=== PATIENT | male | born 1955 | race Caucasian/White ===

== ENCOUNTER → 2016-04-06 | Outpatient (REF) | payer OTHER ==
[~2016-04-06] MED LIST: ACET500C PO; ASPI81TA85 PO; ATEN25TA PO; COUM2.5T11 PO; DRIS50002 PO; LISI10TA4 PO; METF500T PO; NAPR500T PO; PERC5TAB6 PO; TYLE325T5 PO; VOLT1GEL24 TD; ZOCO20TA PO
[2016-04-06 11:47] LABS: BASO % 0.6 % (0.0-1.0); EOS # 0.2 K/mm3 (0.0-0.50); EOS % 3.3 % (0.0-3.0); LARGE UNSTAINED CELL # 0.1 K/mm3 (0.0-0.4); LARGE UNSTAINED CELL % 1.5 % (0.0-4.0); LYMPH # 1.5 K/mm3 (1.5-4.5); LYMPH % 31.3 % (24.0-44.0); MEAN CORPUSCULAR HEMOGLOBIN 32.3 pg (27.0-33.0); MEAN CORPUSCULAR HGB CONC 33.2 g/dl (32.0-36.5); MEAN CORPUSCULAR VOLUME 97.2 fl (80.0-96.0); MONO # 0.4 K/mm3 (0.0-0.8); MONO % 7.5 % (0.0-5.0); NEUTROPHILS # 2.6 K/mm3 (1.8-7.7); NEUTROPHILS % 55.7 % (36.0-66.0); PLATELET COUNT, AUTOMATED 202 k/mm3 (150-450); RED CELL DISTRIBUTION WIDTH 12.6 % (11.5-14.5); WHITE BLOOD COUNT 4.7 K/mm3 (4.0-10.0)
[2016-04-06 12:15] LABS: ALKALINE PHOSPHATASE 116 U/L (45-117); ALT/SGPT 25 U/L (12-78); ANION GAP 7 MEQ/L (8-16); AST/SGOT 17 U/L (15-37); BILIRUBIN,TOTAL 0.7 MG/DL (0.2-1.0); BLOOD UREA NITROGEN 16 MG/DL (7-18); CALCIUM LEVEL 9.2 MG/DL (8.8-10.2); CARBON DIOXIDE LEVEL 31 MEQ/L (21-32); CHLORIDE LEVEL 105 MEQ/L (98-107); CHOLESTEROL LEVEL 155 MG/DL (<200); GLOMERULAR FILTRATION RATE > 60.0 (>49); GLUCOSE, FASTING 89 MG/DL (80-110); POTASSIUM SERUM 4.5 MEQ/L (3.5-5.1); SODIUM LEVEL 143 MEQ/L (136-145); TOTAL PROTEIN 6.5 GM/DL (6.4-8.2); TRIGLYCERIDES LEVEL 94 MG/DL (<150)
== END ==
LOC: M SFHCPLAZ 08:25
PROVIDERS: ATTEND Family Medicine
DX: R73.01 Impaired fasting glucose (principal); E78.5 Hyperlipidemia, unspecified

== ENCOUNTER 2016-04-10 10:15 | Outpatient (RCR) | payer OTHER | END 2016-04-11 | LOC: M PT 10:15 | PROVIDERS: ATTEND Orthopaedic Surgery | DX: Z51.89 Encounter for other specified aftercare (principal); M17.12 Unilateral primary osteoarthritis, left knee ==

== ENCOUNTER 2016-05-03 11:00 | Outpatient (RCR) | payer OTHER | END 2016-05-12 | LOC: M PT 11:00 | PROVIDERS: ATTEND Orthopaedic Surgery | DX: Z51.89 Encounter for other specified aftercare (principal); M17.12 Unilateral primary osteoarthritis, left knee ==

== ENCOUNTER → 2016-09-28 | Outpatient (REF) | payer OTHER ==
[~2016-09-28] MED LIST changes: -COUM2.5T11 PO; +COUM2.5T17 PO; -METF500T PO; +METF500T13 PO; +PERC5TAB12 PO; -PERC5TAB6 PO; +VOLT1GEL15 TD; -VOLT1GEL24 TD
[2016-09-28 14:34] LABS: VITAMIN B12 LEVEL 349 PG/ML (247-911)
[2016-09-28 14:40] LABS: ALBUMIN 4.4 GM/DL (3.2-5.2); ALBUMIN/GLOBULIN RATIO 1.57 (1.00-1.93); ALKALINE PHOSPHATASE 112 U/L (45-117); ALT/SGPT 24 U/L (12-78); ANION GAP 9 MEQ/L (8-16); AST/SGOT 16 U/L (15-37); BILIRUBIN,TOTAL 0.9 MG/DL (0.2-1.0); BLOOD UREA NITROGEN 18 MG/DL (7-18); CALCIUM LEVEL 8.8 MG/DL (8.8-10.2); CARBON DIOXIDE LEVEL 29 MEQ/L (21-32); CHLORIDE LEVEL 104 MEQ/L (98-107); CREATININE FOR GFR 0.86 MG/DL (0.70-1.30); GLOMERULAR FILTRATION RATE > 60.0 (>49); GLUCOSE, FASTING 81 MG/DL (80-110); POTASSIUM SERUM 4.4 MEQ/L (3.5-5.1); SODIUM LEVEL 142 MEQ/L (136-145); TOTAL PROTEIN 7.2 GM/DL (6.4-8.2)
[2016-09-29 12:03] LABS: PRETREATED FOLATE FOR RBCFOL 11.5 NG/ML
[2016-10-02 09:47] LABS: ALBUMIN 4.58 GM/DL (3.29-5.55); ALBUMIN % 63.6 % (55.8-66.1); GAMMA GLOBULIN % 11.2 % (11.1-18.8)
== END ==
LOC: M SFHCPLAZ 11:41
PROVIDERS: ATTEND Family Medicine
DX: E55.9 Vitamin D deficiency, unspecified (principal); R73.01 Impaired fasting glucose; Z12.5 Encounter for screening for malignant neoplasm of prostate; D75.89 Other specified diseases of blood and blood-forming organs

== ENCOUNTER → 2017-01-11 | Outpatient (RCR) | payer OTHER | LOC: M PT 12-21 08:16 | PROVIDERS: ATTEND Orthopaedic Surgery | DX: Z51.89 Encounter for other specified aftercare (principal); M17.12 Unilateral primary osteoarthritis, left knee ==

== ENCOUNTER 2017-01-18 09:07 | Outpatient (RCR) | payer OTHER | END 2017-02-11 | LOC: M PT 09:07 | DX: Z51.89 Encounter for other specified aftercare (principal); M17.12 Unilateral primary osteoarthritis, left knee | CPT/HCPCS: 97110 ==

== ENCOUNTER → 2017-01-29 | Outpatient (REF) | payer OTHER ==
[2017-01-29 13:16] LABS: BASO # 0.1 10^3/uL (0.0-0.2); BASO % 0.9 % (0.0-1.0); EOS # 0.1 10^3/uL (0.0-0.50); EOS % 1.6 % (0.0-3.0); IMMATURE GRANULOCYTE % 0.5 % (0-0); LYMPH # 1.5 10^3/uL (1.5-4.5); LYMPH % 26.3 % (24.0-44.0); MEAN CORPUSCULAR HEMOGLOBIN 32.4 pg (27.0-33.0); MEAN CORPUSCULAR HGB CONC 33.3 g/dl (32.0-36.5); MEAN CORPUSCULAR VOLUME 97.4 fl (80.0-96.0); MONO # 0.6 10^3/uL (0.0-0.8); NEUTROPHILS # 3.4 10^3/uL (1.8-7.7); NEUTROPHILS % 60.7 % (36.0-66.0); PLATELET COUNT, AUTOMATED 229 10^3/uL (150-450); RED CELL DISTRIBUTION WIDTH 12.4 % (11.5-14.5); WHITE BLOOD COUNT 5.5 10^3/uL (4.0-10.0)
[2017-01-29 13:50] LABS: ALBUMIN 4.3 GM/DL (3.2-5.2); ALBUMIN/GLOBULIN RATIO 1.39 (1.00-1.93); ALKALINE PHOSPHATASE 106 U/L (45-117); ALT/SGPT 26 U/L (12-78); ANION GAP 4 MEQ/L (8-16); AST/SGOT 18 U/L (7-37); BILIRUBIN,TOTAL 0.6 MG/DL (0.2-1.0); BLOOD UREA NITROGEN 21 MG/DL (7-18); CALCIUM LEVEL 9.3 MG/DL (8.8-10.2); CARBON DIOXIDE LEVEL 32 MEQ/L (21-32); CHLORIDE LEVEL 103 MEQ/L (98-107); CREATININE FOR GFR 0.85 MG/DL (0.70-1.30); GLOMERULAR FILTRATION RATE > 60.0 (>49); GLUCOSE, FASTING 90 MG/DL (80-110); POTASSIUM SERUM 5.1 MEQ/L (3.5-5.1); SODIUM LEVEL 139 MEQ/L (136-145); TOTAL PROTEIN 7.4 GM/DL (6.4-8.2)
[2017-01-29 13:57] LABS: VITAMIN B12 LEVEL 350 PG/ML (247-911)
== END ==
LOC: M SFHCPLAZ 11:43
PROVIDERS: ATTEND Family Medicine
DX: D75.89 Other specified diseases of blood and blood-forming organs (principal); E55.9 Vitamin D deficiency, unspecified; R73.01 Impaired fasting glucose

== ENCOUNTER 2017-02-26 10:50 | Outpatient (RCR) | payer OTHER | END 2017-03-14 | LOC: M PT 10:50 | DX: Z51.89 Encounter for other specified aftercare (principal); M17.12 Unilateral primary osteoarthritis, left knee | CPT/HCPCS: 97110 ==

== ENCOUNTER 2017-03-15 13:04 | Outpatient (RCR) | payer OTHER | END 2017-04-11 | LOC: M PT 03-20 13:00 | DX: Z51.89 Encounter for other specified aftercare (principal); M17.12 Unilateral primary osteoarthritis, left knee | CPT/HCPCS: 97110 ==

== ENCOUNTER → 2017-10-24 | Outpatient (REF) | payer OTHER ==
[2017-10-24 13:15] LABS: ALBUMIN 4.2 GM/DL (3.2-5.2); ALBUMIN/GLOBULIN RATIO 1.35 (1.00-1.93); ALKALINE PHOSPHATASE 111 U/L (45-117); ALT/SGPT 27 U/L (12-78); ANION GAP 5 MEQ/L (8-16); AST/SGOT 14 U/L (7-37); BILIRUBIN,TOTAL 0.8 MG/DL (0.2-1.0); BLOOD UREA NITROGEN 20 MG/DL (7-18); CALCIUM LEVEL 9.4 MG/DL (8.8-10.2); CARBON DIOXIDE LEVEL 32 MEQ/L (21-32); CHLORIDE LEVEL 102 MEQ/L (98-107); CHOLESTEROL LEVEL 151 MG/DL (<200); CHOLESTEROL RISK RATIO 2.253 (<5); CPK CREATINE PHOSPHOKINASE 86 U/L (39-308); CREATININE FOR GFR 0.84 MG/DL (0.70-1.30); GLOMERULAR FILTRATION RATE > 60.0 (>49); GLUCOSE, FASTING 84 MG/DL (70-100); HDL CHOLESTEROL 67 MG/DL (>40); LDL CHOLESTEROL 66 MG/DL (<100); NON-HDL-C 84 MG/DL; SODIUM LEVEL 139 MEQ/L (136-145); TOTAL PROTEIN 7.3 GM/DL (6.4-8.2); TRIGLYCERIDES LEVEL 91 MG/DL (<150)
[2017-10-24 16:42] LABS: ESTIMATED AVERAGE GLUCOSE 105 MG/DL (60-110); HEMOGLOBIN A1c 5.3 %
== END ==
LOC: M SFHCPLAZ 09:43
DX: E78.5 Hyperlipidemia, unspecified (principal); R73.01 Impaired fasting glucose

== ENCOUNTER → 2018-07-19 | Outpatient (REF) | payer OTHER ==
[~2018-07-19] MED LIST changes: +ASPI81TA26 PO; -DRIS50002 PO; +DRIS50003 PO; +NAPR-837 PO; -NAPR500T PO
[2018-07-19 13:45] LABS: BASO % 0.6 % (0.0-1.0); EOS # 0.1 10^3/uL (0.0-0.50); EOS % 1.7 % (0.0-3.0); HEMATOCRIT 49.6 % (42.0-52.0); LYMPH # 1.3 10^3/uL (1.5-4.5); LYMPH % 27.3 % (24.0-44.0); MEAN CORPUSCULAR HEMOGLOBIN 32.5 pg (27.0-33.0); MEAN CORPUSCULAR HGB CONC 32.3 g/dl (32.0-36.5); MEAN CORPUSCULAR VOLUME 100.8 fl (80.0-96.0); MONO # 0.4 10^3/uL (0.0-0.8); MONO % 9.1 % (0.0-5.0); NEUTROPHILS % 61.1 % (36.0-66.0); PLATELET COUNT, AUTOMATED 227 10^3/uL (150-450); RED BLOOD COUNT 4.92 10^6/uL (4.30-6.10); WHITE BLOOD COUNT 4.8 10^3/uL (4.0-10.0)
[2018-07-19 14:20] LABS: ALBUMIN 4.3 GM/DL (3.2-5.2); ALT/SGPT 25 U/L (12-78); BILIRUBIN,TOTAL 0.6 MG/DL (0.2-1.0); BLOOD UREA NITROGEN 17 MG/DL (7-18); CALCIUM LEVEL 9.5 MG/DL (8.8-10.2); CARBON DIOXIDE LEVEL 30 MEQ/L (21-32); CHLORIDE LEVEL 103 MEQ/L (98-107); CREATININE FOR GFR 0.85 MG/DL (0.70-1.30); FREE T4 0.93 NG/DL (0.76-1.46); GLOMERULAR FILTRATION RATE > 60.0 (>49); GLUCOSE, FASTING 91 MG/DL (70-100); MAGNESIUM LEVEL 2.4 MG/DL (1.8-2.4); POTASSIUM SERUM 4.6 MEQ/L (3.5-5.1); PTH INTACT 37.9 PG/ML (18.5-88.0); SODIUM LEVEL 141 MEQ/L (136-145); TOTAL 25(OH) VITAMIN D 36.5 NG/ML (30.0-100.0); TOTAL PROTEIN 7.1 GM/DL (6.4-8.2)
[2018-07-19 14:21] LABS: VITAMIN B12 LEVEL 397 PG/ML (247-911)
== END ==
LOC: M SFHCPLAZ 11:45
PROVIDERS: ATTEND Family Medicine
DX: E53.8 Deficiency of other specified B group vitamins (principal); I10 Essential (primary) hypertension; E78.5 Hyperlipidemia, unspecified; Z12.5 Encounter for screening for malignant neoplasm of prostate; E55.9 Vitamin D deficiency, unspecified

== ENCOUNTER → 2018-11-29 | Outpatient (REF) | payer OTHER ==
[2018-11-29 13:34] LABS: BASO % 0.8 % (0.0-1.0); EOS # 0.1 10^3/uL (0.0-0.5); EOS % 1.3 % (0.0-3.0); HEMATOCRIT 49.7 % (42.0-52.0); HEMOGLOBIN 16.3 g/dl (13.5-17.5); LYMPH % 20.9 % (24.0-44.0); MEAN CORPUSCULAR HEMOGLOBIN 32.5 pg (27.0-33.0); MEAN CORPUSCULAR HGB CONC 32.8 g/dl (32.0-36.5); MEAN CORPUSCULAR VOLUME 99.2 fl (80.0-96.0); MONO # 0.4 10^3/uL (0.0-0.8); MONO % 9.2 % (0.0-5.0); NEUTROPHILS # 3.2 10^3/uL (1.5-8.5); NEUTROPHILS % 67.2 % (36.0-66.0); PLATELET COUNT, AUTOMATED 218 10^3/uL (150-450); RED BLOOD COUNT 5.01 10^6/uL (4.30-6.10); WHITE BLOOD COUNT 4.8 10^3/uL (4.0-10.0)
[2018-11-29 13:44] LABS: INR 1.03; PROTHROMBIN TIME 13.2 SECONDS (11.8-14.0)
[2018-11-29 13:45] LABS: PARTIAL THROMBOPLASTIN TIME 30.4 SECONDS (25.0-38.4)
[2018-11-29 13:59] LABS: ALT/SGPT 23 U/L (12-78); BILIRUBIN,TOTAL 0.9 MG/DL (0.2-1.0); BLOOD UREA NITROGEN 17 MG/DL (7-18); CALCIUM LEVEL 9.3 MG/DL (8.8-10.2); CARBON DIOXIDE LEVEL 30 MEQ/L (21-32); CHLORIDE LEVEL 105 MEQ/L (98-107); CREATININE FOR GFR 0.91 MG/DL (0.70-1.30); GLOMERULAR FILTRATION RATE > 60.0 (>49); GLUCOSE, FASTING 84 MG/DL (70-100); POTASSIUM SERUM 4.8 MEQ/L (3.5-5.1); SODIUM LEVEL 140 MEQ/L (136-145); TOTAL PROTEIN 7.1 GM/DL (6.4-8.2)
[2018-11-29 14:06] LABS: HEMOGLOBIN A1c 5.7 %
== END ==
LOC: M SFHCPLAZ 12:32
PROVIDERS: ATTEND Family Medicine
DX: R73.01 Impaired fasting glucose (principal)

== ENCOUNTER → 2018-12-02 | Outpatient (CLI) | payer OTHER ==
[~2018-12-02] MED LIST changes: +METF-791 PO; +VITA50005 PO; +XARE10TA PO
--- NOTE | 2018-12-02 13:06 | REP ---
Two-view chest: Indication: Preoperative assessment. Comparison: 01/13/2015. Findings: Scattered bilateral pain are redemonstrated. There is no pulmonary infiltrate, pleural effusion or pneumothorax. The cardiac silhouette is normal. Impression: No acute cardiopulmonary process. Electronically Signed by Nate Saucedo DO 12/02/2018 12:57 P
== END ==
LOC: M RAD 12:13
PROVIDERS: ATTEND Family Medicine
DX: M17.12 Unilateral primary osteoarthritis, left knee (principal)

== ENCOUNTER 2018-12-09 07:49 | Inpatient (IN) | payer MEDICAID, MEDICARE, OTHER ==
--- NOTE | 2018-12-03 16:22 | HPE ---
DATE OF ANTICIPATED ADMISSION: 12/09/2018 CHIEF COMPLAINT: Left knee pain. HISTORY OF PRESENT ILLNESS: Mr. Srinivasan is a pleasant, 63-year-old male with progressively worsening left knee pain and stiffness. He has failed to improve with conservative treatment. He has elected for surgery for his continued symptoms. He has pain with weightbearing activities and his activities of daily living. X-rays of his knee are notable for advanced osteoarthritis of the left knee joint. He has consented for a left total knee arthroplasty by Dr. Cecilio Plunkett. Medical optimization was performed by Dr. Tsang's office. ALLERGIES: NO KNOWN ALLERGIES. CURRENT MEDICATIONS: - baby aspirin once a day - atenolol 25 mg half tablet once a day - lisinopril 10 mg once a day - metformin HCl - simvastatin 20 mg - Tylenol 325 mg 2 tablets every 6 hours as needed PAST MEDICAL HISTORY: Includes diabetes, hypertension, and hyperlipidemia. PAST SURGICAL HISTORY: Includes right total hip arthroplasty and left knee arthroscopy. SOCIAL HISTORY: This gentleman is retired. Does not smoke. Does not drink. FAMILY HISTORY: Noncontributory. REVIEW OF SYSTEMS: This patient denies chest pain, heart palpitations, cough, wheezing, difficulty breathing, and shortness of breath. He denies abdominal pain, nausea, vomiting, diarrhea, or constipation. He denies recent upper respiratory infection or urinary tract infection symptoms. He does complain of persistent pain in the left knee and pain with weightbearing activities in the left knee. PHYSICAL EXAMINATION: General: He is well-nourished, well-developed, in no acute distress, alert male patient. He walks with a moderate limp favoring the left lower extremity. He is not using assistive devices. Vital signs: He is 70 inches tall, weighs 210 pounds. Temperature 98.2, blood pressure of 122/80, respirations of 18, pulse of 84. Neck was supple without adenopathy or jugular venous distension. Lungs were clear to auscultation without rales or wheeze. Heart: Regular rate and rhythm. Abdomen: Bowel sounds are present. Extremities: Examination of the knee revealed intact skin. He had decreased range of motion due to pain and stiffness. The limb is neurovascularly intact. LABORATORY DATA: EKG showed sinus bradycardia at 51 beats per minute. CBC showed a MCV of 99.2, otherwise within normal limits. Glucose 84, BUN 17, creatinine 0.91, sodium 140, potassium 4.8. Hemoglobin A1c was 5.7. ProTime 13.2, INR 1.03. Chest x-ray: Still pending results of the chest x-ray. IMPRESSION: Symptomatic osteoarthritis of the left knee joint. PLAN: Consented for a left total knee arthroplasty by Dr. Cecilio Plunkett.
[2018-12-09] VITALS (8 sets, daily range): BP systolic 113–144; BP diastolic 62–74
[~2018-12-09] VITALS: Ht 177.8 cm; Wt 89.4 kg
[~2018-12-09 07:49] MED LIST changes: -METF-791 PO; -VITA50005 PO; -XARE10TA PO; +ceFAZolin SOD 2 GM in IV 1 EA IV ONE
[2018-12-09] MEDS ORDERED: MIDAZOLAM INJ 2 MG/2 ML VIAL (J2250) As Ordered ONE ×2 (08:03→08:21)
[2018-12-09] MEDS ORDERED: fentaNYL 100 MCG/2 ML INJECTION (J3010) As Ordered ONE ×3 (08:03→09:41)
[2018-12-09] MEDS ORDERED: TRANEXAMIC ACID 100 MG/ML 10ML VIAL As Ordered ONE (08:03)
[2018-12-09] MEDS ORDERED: LIDOCAINE 2% INJ 100 MG/5 ML SDV (FOR ANES.) As Ordered ONE ×2 (08:03→09:23)
[2018-12-09] MEDS ORDERED: BUPIVACAINE LIPOSOME/PF 1.3% 20ML VIAL (13.3MG/ML)(EXPAREL)(C9290 PER1MG) As Ordered ONE (08:04)
[2018-12-09] MEDS ORDERED: ceFAZolin 1GM INJ (J0690 PER 500MG) As Ordered ONE (08:04)
[2018-12-09] MEDS ORDERED: EPINEPHrine INJ 1 MG/ML 1ML AMP As Ordered ONE (08:04)
[2018-12-09] MEDS ORDERED: PROPOFOL 500 MG/50 ML VIAL As Ordered ONE (08:04)
--- NOTE | 2018-12-09 08:47 | IPN ---
DATE: 12/09/2018 The patient seen and examined preoperatively. He did of note arrive 45 minutes late today. His left knee was initialed. He wishes to go ahead with a left total knee arthroplasty. He understands the nature of this, the risks of bleeding, infection, damage to nerves and vessels, persistent pain, wear, loosening, continued instability, blood clots, medical problems, among others.
[2018-12-09] MEDS ORDERED: ROCURONIUM BROMIDE 50 MG/5 ML VIAL As Ordered ONE (09:07)
[2018-12-09] MEDS ORDERED: KETAMINE HCL 200 MG/20 ML VIAL As Ordered ONE (09:15)
[2018-12-09] MEDS ORDERED: dexameTHASONE 4 MG/ML 1ML VIAL (J1100) As Ordered ONE (09:31)
[2018-12-09] MEDS ORDERED: ACETAMINOPHEN 1000MG 100ML IV BTL (OFIRMEV) (J0131 PER 10MG) As Ordered ONE (09:34)
[2018-12-09] MEDS ORDERED: KETOROLAC 60 MG/2 ML VIAL (J1885) As Ordered ONE (09:34)
[2018-12-09] MEDS ORDERED: SUGAMMADEX SODIUM 500 MG/5 ML VIAL (BRIDION) As Ordered ONE (09:35)
[2018-12-09] MEDS ORDERED: ONDANSETRON 4MG/2ML VIAL (J2405) As Ordered ONE (09:35)
[2018-12-09] MEDS ORDERED: MORPHINE 4 MG/ML 1ML VIAL/SYRINGE (J2270) IV PRN ×2 (11:00)
[2018-12-09] MEDS ORDERED: FLEET ENEMA PR PRN (11:00)
[2018-12-09] MEDS ORDERED: LR 1,000 ML IV SCH ×2 (11:00→11:45)
[2018-12-09] MEDS ORDERED: PERCOCET 5MG/325MG TAB PO PRN (11:00)
[2018-12-09] MEDS ORDERED: ONDANSETRON 4MG/2ML VIAL (J2405) IV PRN ×2 (11:00→11:45)
[2018-12-09] MEDS ORDERED: ACETAMINOPHEN TAB 650MG DOSE (2X325MG) PO PRN (11:00)
--- NOTE | 2018-12-09 11:03 | RO ---
DATE OF PROCEDURE: 12/09/2018 PREOPERATIVE DIAGNOSIS: Left knee osteoarthritis. POSTOPERATIVE DIAGNOSIS: Left knee osteoarthritis. PROCEDURE: Left total knee arthroplasty. SURGEON: Cecilio Plunkett MD [employer] TECHNICIAN: Johnny Dunlap PA-C ANESTHESIA: General. ESTIMATED BLOOD LOSS: 50. COMPLICATIONS: None. INDICATIONS: This is a 63-year-old gentleman has had significant osteoarthritis and significant instability of his left knee. He was not able tolerate the pain any more and wished to go ahead with surgical treatment. He had failed other conservative management. He understood the nature of this, the risks of bleeding, infection, damage to nerves, vessels, persistent pain, wear loosening, blood clots, medical problems, , among others. DESCRIPTION OF PROCEDURE: The patient was taken to the operating room and placed in the supine position after general anesthesia was induced. The left lower extremity was prepped and draped in the usual sterile fashion. He did have a fair amount of varus/valgus instability. Time-out was performed. Tourniquet was inflated. A longitudinal incision was made over the anterior aspect of the left knee. Sharp dissection was carried down through subcutaneous tissue. I then performed a medial parapatellar arthrotomy. Everted the patella. Removed some osteophytes. Used the canal-initiating reamer on the femoral side. I also removed some fat pad for visualization. The canal-initiating reamer was used on the femoral side, followed by the intramedullary guide set at 7 degrees of valgus due to his fairly valgus alignment and a 9-mm cut. This was pinned in place, and the distal femoral cut was made. I protected soft tissues. I then sized the femur to be a 4. This was pinned in place with the external rotation dialed in, and the cutting block was secured, and the remaining cuts were made. I then prepared the tibia, the tibial alignment, in the appropriate amount of valgus and posterior slope. The proximal tibia cut was made protecting soft tissues. I then used the box cutting guide on the femoral side. This was pinned in place. The box cut was made the usual fashion. I removed the remaining posterior cruciate ligament (PCL). Removed soft tissue and osteophytes from either side of the knee. I then tested the flexion extension gaps with spacer block, and a size 12 seemed to have excellent stability in flexion and in extension. Excellent alignment. He did not have any recurvatum. I then prepared the tibial surface, which was sized to be a 6. This was secured in place, drilled, broached, and trial components were placed. Overall, very pleased with the alignment and stability. They was excellent balance. The drill holes were placed in the end of the femur. I prepared the patella, freehand cutting about 7 mm of bone, sized to be a 38. I did have to do somewhat of a lateral release, but the patella tracked quite nicely. The assistant manager/embalmer prepared the bone cement. I removed the trial components. The surfaces were copiously irrigated. The Exparel was placed in deep tissues. Once the cement was prepared in the modern technique, I then cemented on the tibial surface, followed by the femoral component, placed the polyethylene, cemented on the patella, held this and placed the clamp, removed all excess bone cement. I then copiously irrigated, placed the Tranexamic acid (TXA) deep in the wound, and then irrigated again. I repaired the deep layer with #1 Vicryl suture and a running Stratafix suture, obtaining a watertight closure. I put the knee through range of motion. The knee was very stable. The patella tracked well. I again irrigated and closed the subcutaneous with 2-0 Vicryl and the skin with klarissa. Sterile dressing was applied. Tourniquet had been deflated once the cement had hardened. The patient was taken to the recovery room in stable condition. There were no known complications. The plan be routine postoperative. The assistant manager/embalmer was instrumental in holding retractors and mixing the bone cement and assisting in wound closure. TOR
--- NOTE | 2018-12-09 11:13 | REP ---
Clinical: Status post knee replacement. Technique AP and cross-table lateral views left knee . Findings: The patient is status post left knee replacement with normal positioning and appearance to the femoral and tibial components. Overlying postsurgical changes appreciated. Impression: Status post left knee replacement. Electronically Signed by Matt Ashton MD 12/09/2018 11:04 A
[2018-12-09] MEDS ORDERED: MORPHINE 10 MG/ML 1ML VIAL (J2270) IV PRN (11:45)
[2018-12-09] MEDS ORDERED: fentaNYL 100 MCG/2 ML INJECTION (J3010) IV PRN (11:45)
[2018-12-09] MEDS: ceFAZolin SOD 2 GM in IV 1 EA IV SCH (16:07)
--- NOTE | 2018-12-09 20:17 | CR.PDOC ---
General Date of Consultation: Dec 09, 2018 Consultation REASON FOR CONSULTATION/CHIEF COMPLAINT: Physical exam HISTORY OF PRESENT ILLNESS: Patient is 63 years old male with past history of diabetes, hypertension, hyperlipidemia presented hospital for planned left knee replacement. The total left knee arthroplasty was done with no complications. Patient denies fever, shortness of breath, palpitations chills, nausea, vomiting, diarrhea or dysuria ALLERGIES: Please see below. HOME MEDICATIONS: Please see below. PAST MEDICAL HISTORY: diabetes, hypertension, hyperlipidemia PAST SURGICAL HISTORY: FAMILY HISTORY: Father: from heart attack Mother: Mother from lung cancer SOCIAL HISTORY: Tobacco use: Denies ETOH: Denies Illicit drug use: Denies 10 point review system negative except as listed above PHYSICAL EXAMINATION: VITAL SIGNS: Please see below. General: NAD Neck was supple without adenopathy or jugular venous distension. Lungs were clear to auscultation without rales or wheeze. Heart: Regular rate and rhythm. Abdomen: Bowel sounds are present. Extremities: Left knee covered with dressing LABORATORY DATA: Please see below. ASSESSMENT/PLAN: Patient is 63 years old male with past history of diabetes, hypertension, hyperlipidemia presented hospital for planned left knee replacement. The total left knee arthroplasty was done with no complications Diabetes Continue metformin Glucose level is under control hyperlipidemia Continue statin Hypertension Blood pressures under control Continue home meds Status post left knee replacement Anticoagulations per orthopedic team Pain management Vital Signs/I&O Vital Signs Date Time Temp Pulse Resp B/P (MAP) Pulse Ox O2 Delivery O2 Flow Rate FiO2 12/09/18 17:00 98.6 81 18 115/64 (81) 95 Room Air 12/09/18 10:50 10 Laboratory Data Labs 24H Laboratory Tests 2 12/09/18 08:07: Erythrocyte Sedimentation Rate 3 12/09/18 08:12: Bedside Glucose (Misc Panel) 114 12/09/18 10:42: Bedside Glucose (Misc Panel) 115 Allergies Coded Allergies: No Known Allergies (Unverified , 11/26/18) Home Medications Scheduled Atenolol (Atenolol) 25 Mg Tab, 12.5 MG PO DAILY, (Reported) Lisinopril (Lisinopril) 10 Mg Tab, 10 MG PO DAILY, (Reported) Metformin HCl (Metformin HCl) 500 Mg Tab, 500 MG PO DAILY, (Reported) Simvastatin (Zocor) 20 Mg Tab, 20 MG PO DAILY, (Reported) CHARLOTTE LAMA DO Dec 09, 2018 20:17
[2018-12-09] MEDS ORDERED: METF-791 PO (20:50)
[2018-12-09] MEDS ORDERED: VITA50005 PO (20:50)
[2018-12-09] MEDS ORDERED: ASPI81TA85 PO (20:50)
[2018-12-09] MEDS: SIMVASTATIN 20 MG TAB PO SCH (20:51)
[2018-12-10] VITALS (7 sets, daily range): BP systolic 84–134; BP diastolic 46–75
[2018-12-10] MEDS: ceFAZolin SOD 2 GM in IV 1 EA IV SCH (01:06)
[2018-12-10] MEDS ORDERED: NS 500 ML IV ONE (05:30)
[2018-12-10 06:32] LABS: HEMATOCRIT 37.9 % (42.0-52.0); HEMOGLOBIN 12.3 g/dl (13.5-17.5); MEAN CORPUSCULAR HEMOGLOBIN 31.9 pg (27.0-33.0); MEAN CORPUSCULAR HGB CONC 32.5 g/dl (32.0-36.5); MEAN CORPUSCULAR VOLUME 98.4 fl (80.0-96.0); PLATELET COUNT, AUTOMATED 180 10^3/uL (150-450); RED BLOOD COUNT 3.85 10^6/uL (4.30-6.10); WHITE BLOOD COUNT 9.8 10^3/uL (4.0-10.0)
[2018-12-10] MEDS ORDERED: PERC5TAB12 PO (06:53)
[2018-12-10] MEDS ORDERED: XARE10TA PO (06:53)
[2018-12-10] MEDS ORDERED: metFORMIN (GLUCOPHAGE) 500 MG TAB PO SCH (08:00)
[2018-12-10] MEDS: ATENOLOL 12.5MG PER 1/2 TABLET PO SCH (09:00)
[2018-12-10] MEDS: LISINOPRIL 10 MG TAB PO SCH (09:00)
[2018-12-10] MEDS: MIRALAX *UNIT DOSE* 17GM PACKET PO SCH (09:14)
[2018-12-10] MEDS: metFORMIN XR 500MG TAB *GLUCOPHAGE XR PO SCH (09:14)
[2018-12-10] MEDS: MOM 30ML SUSPENSION UDC PO SCH (09:14)
[2018-12-10] MEDS: RIVAROXABAN 10 MG TAB (XARELTO) PO SCH (17:12)
--- NOTE | 2018-12-10 19:15 | IPNPDOC ---
Subjective Date Seen The patient was seen on 12/10/18. Subjective Chief Complaint/HPI stable pain control. No chest pain/dyspnea Constitutional: Denies: Chills Eyes: Denies: Pain ENT: Denies: Head Aches, Ear Pain Pulmonary: Denies: Dyspnea, Cough Cardiovascular: Denies: Chest Pain Gastrointestinal: Denies: Nausea, Vomiting Objective Physical Examination General Exam: Positive: Alert ENT Exam: Positive: Mucous membr. moist/pink Neck Exam: Negative: JVD Chest Exam: Positive: Clear to auscultation Heart Exam: Positive: Rate Normal Abdomen Exam: Positive: Normal bowel sounds Extremity Exam: Negative: Edema Neuro Exam: Positive: Normal Speech, Strength at 5/5 X4 ext Psych Exam: Positive: Mood NL Assessment /Plan Problems (1) Knee osteomyelitis, left Problem Text: POD 1 L TKR (2) DM2 (diabetes mellitus, type 2) Status: Chronic Problem Text: stable control on HD met (3) Hypertension Status: Chronic Problem Text: stable on HD aten, lisin Plan/VTE VTE Prophylaxis Ordered?: Yes [facility] Signs/I&O Vital Signs Date Time Temp Pulse Resp B/P (MAP) Pulse Ox O2 Delivery O2 Flow Rate FiO2 12/10/18 15:12 96.5 94 17 103/63 (76) 97 Room Air 12/09/18 10:50 10 I&O- Last 24 Hours up to 6 AM 12/10/18 06:00 Intake Total 4650 ml Output Total 2525 ml Balance 2125 ml Laboratory Data 24H LABS Laboratory Tests 2 12/10/18 05:15: Bedside Glucose (Misc Panel) 157H 12/10/18 06:18: Nucleated Red Blood Cells % (auto) 0.0 12/10/18 08:09: Bedside Glucose (Misc Panel) 179H CBC/BMP Laboratory Tests 12/10/18 06:18 Oni Tsang M.D. Dec 10, 2018 19:15
[2018-12-10] MEDS: SIMVASTATIN 20 MG TAB PO SCH (21:10)
[2018-12-11 06:00] VITALS: BP 113/65
[2018-12-11 06:21] LABS: BASO # 0.1 10^3/uL (0.0-0.2); BASO % 0.6 % (0.0-1.0); EOS % 0.2 % (0.0-3.0); HEMATOCRIT 36.7 % (42.0-52.0); HEMOGLOBIN 11.9 g/dl (13.5-17.5); LYMPH # 1.5 10^3/uL (1.5-5.0); LYMPH % 16.5 % (24.0-44.0); MEAN CORPUSCULAR HGB CONC 32.4 g/dl (32.0-36.5); MEAN CORPUSCULAR VOLUME 98.7 fl (80.0-96.0); MONO # 1.5 10^3/uL (0.0-0.8); MONO % 16.3 % (0.0-5.0); NEUTROPHILS # 5.9 10^3/uL (1.5-8.5); NEUTROPHILS % 65.7 % (36.0-66.0); PLATELET COUNT, AUTOMATED 188 10^3/uL (150-450); RED BLOOD COUNT 3.72 10^6/uL (4.30-6.10); WHITE BLOOD COUNT 8.9 10^3/uL (4.0-10.0)
[2018-12-11 06:44] LABS: ALBUMIN 3.2 GM/DL (3.2-5.2); ALT/SGPT 13 U/L (12-78); BLOOD UREA NITROGEN 11 MG/DL (7-18); CALCIUM LEVEL 8.9 MG/DL (8.8-10.2); CARBON DIOXIDE LEVEL 32 MEQ/L (21-32); CHLORIDE LEVEL 103 MEQ/L (98-107); GLOMERULAR FILTRATION RATE > 60.0 (>49); GLUCOSE, FASTING 115 MG/DL (70-100); POTASSIUM SERUM 4.3 MEQ/L (3.5-5.1); SODIUM LEVEL 138 MEQ/L (136-145); TOTAL PROTEIN 6.8 GM/DL (6.4-8.2)
[2018-12-11] MEDS ORDERED: XARE10TA PO (07:58)
[2018-12-11] MEDS: MIRALAX *UNIT DOSE* 17GM PACKET PO SCH (10:23)
[2018-12-11] MEDS: metFORMIN XR 500MG TAB *GLUCOPHAGE XR PO SCH (10:23)
[2018-12-11] MEDS: MOM 30ML SUSPENSION UDC PO SCH (10:23)
[2018-12-11] MEDS: ATENOLOL 12.5MG PER 1/2 TABLET PO SCH (10:24)
[2018-12-11] MEDS: LISINOPRIL 10 MG TAB PO SCH (10:24)
[2018-12-11 14:00] VITALS: BP 144/51
[2018-12-11] MEDS: CEPHALEXIN 500 MG CAP PO SCH ×3 (14:12→20:11)
[2018-12-11] MEDS: RIVAROXABAN 10 MG TAB (XARELTO) PO SCH (17:49)
[2018-12-11 19:47] VITALS: BP 107/56
[2018-12-11] MEDS: SIMVASTATIN 20 MG TAB PO SCH (20:11)
[2018-12-12 05:45] VITALS: BP 127/70
[2018-12-12] MEDS ORDERED: XARE10TA PO (08:18)
[2018-12-12] MEDS ORDERED: KEFL500C17 PO (08:22)
[2018-12-12] MEDS: CEPHALEXIN 500 MG CAP PO SCH ×2 (08:49→13:30)
[2018-12-12] MEDS: MOM 30ML SUSPENSION UDC PO SCH (08:49)
[2018-12-12 08:50] VITALS: BP 119/65
[2018-12-12] MEDS: MIRALAX *UNIT DOSE* 17GM PACKET PO SCH (08:50)
[2018-12-12] MEDS: ATENOLOL 12.5MG PER 1/2 TABLET PO SCH (08:50)
[2018-12-12] MEDS: metFORMIN XR 500MG TAB *GLUCOPHAGE XR PO SCH (08:50)
[2018-12-12] MEDS: LISINOPRIL 10 MG TAB PO SCH (08:51)
[2018-12-12] MEDS ORDERED: CEPHALEXIN 500 MG CAP PO SCH (09:00)
--- NOTE | 2018-12-12 09:58 | IPNPDOC ---
Subjective Date Seen The patient was seen on 12/12/18. Subjective Chief Complaint/HPI Mr. Srinivasan is s/p L TKA. He reports that the therapy is going ok and he hopes to go home today. He has no acute medical complaints. Nursing has no concerns with his BP or blood glucose levels. General: Reports: Normal Appetite Constitutional: Denies: Chills, Fever Pulmonary: Denies: Dyspnea, Cough Cardiovascular: Denies: Chest Pain, Palpitations Genitourinary: Denies: Dysuria Psych: Reports: Mood Normal Objective Physical Examination General Exam: Positive: Alert, Cooperative, No Acute Distress Eye Exam: Positive: Conjunctiva & lids normal; Negative: Sclera icteric ENT Exam: Positive: Mucous membr. moist/pink Neck Exam: Negative: JVD Chest Exam: Positive: Clear to auscultation, Normal air movement Heart Exam: Positive: Rate Normal, Regular Rhythm, Normal S1, Normal S2; Negative: Gallops, Murmurs, Rubs Abdomen Exam: Positive: Normal bowel sounds, Soft; Negative: Tenderness Extremity Exam: Positive: Other (There is some serous discharge from the incision line on the L knee, but no signs of infection.) Neuro Exam: Positive: Normal Speech Psych Exam: Positive: Mood NL Assessment /Plan Problems (1) Knee osteomyelitis, left Problem Text: POD 3 L TKR. Ortho is managing: pain, rehab, bowel meds, and anticoagulation. (2) DM2 (diabetes mellitus, type 2) Status: Chronic Response to Treatment: Stable Problem Text: His blood glucose levels are adequately controlled on the current regimen. Continue current and monitor. (3) Hypertension Status: Chronic Response to Treatment: Stable Problem Text: His BP is adequately controlled on his regular medications. Continue current regimen, monitor. Plan/VTE VTE Prophylaxis Ordered?: Yes Plan It sounds as if Orthopedics plans to discharge him home today and we have no medical objection to this. VS, I&O, 24H, Fishbone Vital Signs/I&O Vital Signs Date Time Temp Pulse Resp B/P (MAP) Pulse Ox O2 Delivery O2 Flow Rate FiO2 12/12/18 08:50 90 119/65 12/12/18 05:45 98.8 20 96 Room Air 12/09/18 10:50 10 I&O- Last 24 Hours up to 6 AM 12/12/18 06:00 Intake Total 5260 ml Output Total 3850 ml Balance 1410 ml Laboratory Data 24H LABS Laboratory Tests 2 12/11/18 19:59: Bedside Glucose (Misc Panel) 129H Panfilo Almendarez MD Dec 12, 2018 09:58
--- NOTE | 2018-12-13 20:37 | DSES ---
DATE OF ADMISSION: 12/09/2018 DATE OF DISCHARGE: 12/12/2018 ATTENDING PHYSICIAN: Dr. Cecilio Plunkett ADMISSION DIAGNOSIS: Left knee osteoarthritis. OTHER DIAGNOSES: Diabetes. Hypertension. Hyperlipidemia. DISCHARGE DIAGNOSIS: Left knee osteoarthritis, status post left total knee arthroplasty. HISTORY: The patient is a 63-year-old male with progressively worsening left knee pain and stiffness. He failed to improve with conservative measures. He consented for an elective left total knee arthroplasty with Dr. Plunkett for his continued symptoms. OPERATION PERFORMED: Left total knee arthroplasty. HOSPITAL COURSE: The patient underwent a left total knee arthroplasty under general anesthesia, which was uneventful. He was up with physical therapy per their protocol, weightbearing as tolerated on the left lower extremity. The patient was discharged on oral pain medications and will resume his preoperative medications and diet. The patient will use his thromboembolic deterrent stockings and take his anticoagulant postoperatively to prevent deep venous thrombosis. The patient will follow up in our office in 12-14 days for wound check and staple removal. He is encouraged to contact our office sooner if there is any increase in pain, redness, drainage, numbness or tingling in the extremity, fever greater than 101 degrees or any other concerns. Please see medical records for additional details.
== END 2018-12-12 16:10 | disposition home or self-care (01) | DRG 302 ==
LOC: M OR 07:49 → M MS5PR 11:50
PROVIDERS: ADMIT Orthopaedic Surgery; ATTEND Orthopaedic Surgery
PROC: 0SRD0J9 Replacement of Left Knee Joint with Synthetic Substitute, Cemented, Open Approach (ICD-10-PCS; principal; 2018-12-09 09:10)
DX: M17.12 Unilateral primary osteoarthritis, left knee (principal); I10 Essential (primary) hypertension; Z79.82 Long term (current) use of aspirin; Z79.899 Other long term (current) drug therapy; E11.9 Type 2 diabetes mellitus without complications; Z79.84 Long term (current) use of oral hypoglycemic drugs; E78.5 Hyperlipidemia, unspecified; Z96.641 Presence of right artificial hip joint

== ENCOUNTER 2019-01-07 09:42 | Outpatient (RCR) | payer OTHER ==
[~2019-01-07 09:42] MED LIST changes: +KEFL500C17 PO; +METF-791 PO; +VITA50005 PO; +XARE10TA PO; -ceFAZolin SOD 2 GM in IV 1 EA IV ONE
== END 2019-01-11 ==
LOC: M PT 09:42
PROVIDERS: ATTEND Orthopaedic Surgery
DX: Z47.89 Encounter for other orthopedic aftercare (principal)

== ENCOUNTER → 2019-02-11 | Outpatient (RCR) | payer OTHER | LOC: M PT 01-14 13:50 | PROVIDERS: ATTEND Orthopaedic Surgery | DX: Z47.89 Encounter for other orthopedic aftercare (principal) ==

== ENCOUNTER 2019-03-04 09:27 | Outpatient (RCR) | payer MEDICARE, OTHER | END 2019-03-14 | LOC: M PT 09:27 | PROVIDERS: ATTEND Orthopaedic Surgery | DX: Z47.1 Aftercare following joint replacement surgery (principal); M17.12 Unilateral primary osteoarthritis, left knee ==

== ENCOUNTER → 2019-03-25 | Outpatient (REF) | payer MEDICARE, OTHER ==
[2019-03-25 13:36] LABS: BASO # 0.1 10^3/uL (0.0-0.2); BASO % 0.9 % (0.0-1.0); EOS # 0.3 10^3/uL (0.0-0.5); EOS % 4.6 % (0.0-3.0); HEMATOCRIT 50.3 % (42.0-52.0); HEMOGLOBIN 15.6 g/dl (13.5-17.5); LYMPH # 1.2 10^3/uL (1.5-5.0); LYMPH % 21.4 % (24.0-44.0); MEAN CORPUSCULAR HEMOGLOBIN 30.2 pg (27.0-33.0); MEAN CORPUSCULAR VOLUME 97.5 fl (80.0-96.0); MONO # 0.5 10^3/uL (0.0-0.8); MONO % 9.5 % (0.0-5.0); NEUTROPHILS # 3.6 10^3/uL (1.5-8.5); NEUTROPHILS % 63.2 % (36.0-66.0); PLATELET COUNT, AUTOMATED 223 10^3/uL (150-450); RED BLOOD COUNT 5.16 10^6/uL (4.30-6.10); WHITE BLOOD COUNT 5.7 10^3/uL (4.0-10.0)
[2019-03-25 14:14] LABS: ALBUMIN 4.3 GM/DL (3.2-5.2); ALT/SGPT 22 U/L (12-78); BILIRUBIN,TOTAL 0.7 MG/DL (0.2-1.0); BLOOD UREA NITROGEN 18 MG/DL (7-18); CALCIUM LEVEL 9.4 MG/DL (8.8-10.2); CARBON DIOXIDE LEVEL 32 MEQ/L (21-32); CHLORIDE LEVEL 103 MEQ/L (98-107); CREATININE FOR GFR 0.94 MG/DL (0.70-1.30); FREE T4 0.85 NG/DL (0.76-1.46); GLOMERULAR FILTRATION RATE > 60.0 (>49); GLUCOSE, FASTING 97 MG/DL (70-100); POTASSIUM SERUM 4.6 MEQ/L (3.5-5.1); SODIUM LEVEL 140 MEQ/L (136-145); TOTAL PROTEIN 7.3 GM/DL (6.4-8.2)
[2019-03-25 14:29] LABS: VITAMIN B12 LEVEL 433 PG/ML (247-911)
[2019-03-25 14:30] LABS: HEMOGLOBIN A1c 5.4 %
[2019-03-27 12:00] LABS: ALBUMIN 4.57 GM/DL (3.29-5.55); ALBUMIN % 62.6 % (55.8-66.1); ALPHA-1-GLOBULIN % 4.1 % (2.9-4.9); ALPHA-2-GLOBULINS 0.79 GM/DL (0.42-0.99); ALPHA-2-GLOBULINS % 10.8 % (7.1-11.8); BETA-1-GLOBULINS 0.45 GM/DL (0.28-0.60); BETA-1-GLOBULINS % 6.1 % (4.7-7.2); BETA-2-GLOBULINS 0.29 GM/DL (0.19-0.55); GAMMA GLOBULIN % 12.4 % (11.1-18.8); GAMMA GLOBULINS 0.91 GM/DL (0.65-1.58)
== END ==
LOC: M SFHCPLAZ 11:25
PROVIDERS: ATTEND Family Medicine
DX: R73.01 Impaired fasting glucose (principal); D75.89 Other specified diseases of blood and blood-forming organs; Z79.84 Long term (current) use of oral hypoglycemic drugs; Z79.899 Other long term (current) drug therapy

== ENCOUNTER 2019-04-10 09:30 | Outpatient (RCR) | payer MEDICARE, OTHER | END 2019-04-12 | LOC: M PT 09:30 | PROVIDERS: ATTEND Orthopaedic Surgery | DX: Z96.652 Presence of left artificial knee joint (principal) ==

== ENCOUNTER → 2019-08-13 | Outpatient (CLI) | payer MEDICARE, OTHER ==
[~2019-08-13] MED LIST changes: -METF-791 PO; +METF-838 PO
[2019-08-13 13:18] LABS: APPEARANCE, URINE CLEAR (CLEAR); BACTERIA, URINE AUTO NEGATIVE (NEGATIVE); BILIRUBIN, URINE AUTO NEGATIVE (NEGATIVE); BLOOD, URINE BLOOD NEGATIVE (NEGATIVE); COLOR, URINE YELLOW (YELLOW); GLUCOSE, URINE (UA) AUTO NEGATIVE (NEGATIVE); KETONE, URINE AUTO NEGATIVE (NEGATIVE); LEUKOCYTE ESTERASE, URINE AUTO NEGATIVE (NEGATIVE); MUCUS, URINE SMALL (NEGATIVE); NITRITE, URINE AUTO NEGATIVE (NEGATIVE); PROTEIN, URINE AUTO NEGATIVE (NEGATIVE); RBC, URINE AUTO 0 /HPF (0-3); SPECIFIC GRAVITY URINE AUTO 1.023 (1.002-1.035); SQUAMOUS EPITHELIAL CELL UR AU 0 /HPF (0-6); WBC, URINE AUTO 0 /HPF (0-3)
[2019-08-13 13:39] LABS: HEMOGLOBIN A1c 5.8 %
[2019-08-13 13:48] LABS: ALBUMIN 4.1 GM/DL (3.2-5.2); ALT/SGPT 28 U/L (12-78); BLOOD UREA NITROGEN 16 MG/DL (7-18); CALCIUM LEVEL 9.2 MG/DL (8.8-10.2); CARBON DIOXIDE LEVEL 29 MEQ/L (21-32); CHLORIDE LEVEL 104 MEQ/L (98-107); CREATININE FOR GFR 0.85 MG/DL (0.70-1.30); GLOMERULAR FILTRATION RATE > 60.0 (>49); GLUCOSE, FASTING 83 MG/DL (70-100); POTASSIUM SERUM 4.6 MEQ/L (3.5-5.1); PROSTATIC SPECIFIC AG MONITOR 0.23 NG/ML (< 4.00); SODIUM LEVEL 138 MEQ/L (136-145); TOTAL 25(OH) VITAMIN D 43.6 NG/ML (30.0-100.0); TOTAL PROTEIN 7.2 GM/DL (6.4-8.2)
[2019-08-13 13:52] LABS: MALB URINE SIEMENS 9.6 MG/L; MAU/CREAT RATIO 6.5 MCG/MG (0.0-30.0)
== END ==
LOC: M LAB 12:04
PROVIDERS: ATTEND Family Medicine
DX: R73.01 Impaired fasting glucose (principal); Z12.5 Encounter for screening for malignant neoplasm of prostate; E55.9 Vitamin D deficiency, unspecified

== ENCOUNTER → 2020-02-11 | Outpatient (REF) | payer MEDICARE, OTHER ==
[~2020-02-11] MED LIST changes: -ASPI81TA85 PO; +ASPI81TA86 PO
[2020-02-11 11:09] LABS: BASO # 0.1 10^3/uL (0.0-0.2); BASO % 1.1 % (0.0-1.0); EOS # 0.1 10^3/uL (0.0-0.5); EOS % 2.3 % (0.0-3.0); HEMATOCRIT 50.4 % (42.0-52.0); HEMOGLOBIN 15.8 g/dl (13.5-17.5); LYMPH # 1.5 10^3/uL (1.5-5.0); LYMPH % 27.8 % (24.0-44.0); MEAN CORPUSCULAR HEMOGLOBIN 30.5 pg (27.0-33.0); MEAN CORPUSCULAR HGB CONC 31.3 g/dl (32.0-36.5); MEAN CORPUSCULAR VOLUME 97.3 fl (80.0-96.0); MONO # 0.6 10^3/uL (0.0-0.8); MONO % 11.2 % (0.0-5.0); NEUTROPHILS % 56.8 % (36.0-66.0); PLATELET COUNT, AUTOMATED 242 10^3/uL (150-450); RED BLOOD COUNT 5.18 10^6/uL (4.30-6.10); WHITE BLOOD COUNT 5.3 10^3/uL (4.0-10.0)
[2020-02-11 11:53] LABS: C REACTIVE PROTEIN QUANTITATIV 0.32 MG/DL (0.00-0.30); CHOLESTEROL RISK RATIO 3.583 (<5); FREE T4 0.87 NG/DL (0.76-1.46)
== END ==
LOC: M SFHCPLAZ 09:29
PROVIDERS: ATTEND Family Medicine
DX: Z12.5 Encounter for screening for malignant neoplasm of prostate (principal); E78.5 Hyperlipidemia, unspecified; E53.8 Deficiency of other specified B group vitamins
CPT/HCPCS: 36415; 80061; 82607; 82728; 84439; 84443; 85025; 86140; G0103

== ENCOUNTER → 2020-06-25 | Outpatient (REF) | payer MEDICARE, OTHER ==
[~2020-06-25] MED LIST changes: +LISI10TA22 PO; -LISI10TA4 PO
[2020-06-25 14:08] LABS: HEMOGLOBIN A1c 5.6 %
[2020-06-25 14:16] LABS: ALBUMIN 4.3 GM/DL (3.2-5.2); ALT/SGPT 22 U/L (12-78); BILIRUBIN,TOTAL 0.6 MG/DL (0.2-1.0); BLOOD UREA NITROGEN 20 MG/DL (7-18); CALCIUM LEVEL 9.5 MG/DL (8.8-10.2); CARBON DIOXIDE LEVEL 31 MEQ/L (21-32); CHLORIDE LEVEL 107 MEQ/L (98-107); CHOLESTEROL LEVEL 160 MG/DL (<200); CHOLESTEROL RISK RATIO 2.162 (<5); CPK CREATINE PHOSPHOKINASE 98 U/L (39-308); CREATININE FOR GFR 0.86 MG/DL (0.70-1.30); FERRITIN 204 NG/ML (26-388); FREE T4 0.89 NG/DL (0.76-1.46); GLOMERULAR FILTRATION RATE > 60.0 (>49); GLUCOSE, FASTING 100 MG/DL (70-100); HDL CHOLESTEROL 74 MG/DL (>40); LDL CHOLESTEROL 74 MG/DL (<100); NON-HDL-C 86 MG/DL; POTASSIUM SERUM 5.8 MEQ/L (3.5-5.1); SODIUM LEVEL 140 MEQ/L (136-145); TRIGLYCERIDES LEVEL 60 MG/DL (<150)
[2020-06-25 14:17] LABS: TOTAL 25(OH) VITAMIN D 56.4 NG/ML (30.0-100.0)
== END ==
LOC: M SFHCPLAZ 09:57
PROVIDERS: ATTEND Family Medicine
DX: R73.01 Impaired fasting glucose (principal); E78.5 Hyperlipidemia, unspecified; E55.9 Vitamin D deficiency, unspecified; E53.8 Deficiency of other specified B group vitamins; Z79.84 Long term (current) use of oral hypoglycemic drugs; Z79.899 Other long term (current) drug therapy

== ENCOUNTER → 2020-12-31 | Outpatient (CLI) | payer MEDICARE, OTHER ==
[2020-12-31 15:24] LABS: BASO % 0.6 % (0.0-1.0); EOS # 0.1 10^3/uL (0.0-0.5); EOS % 1.7 % (0.0-3.0); HEMOGLOBIN 15.9 g/dl (13.5-17.5); LYMPH # 1.8 10^3/uL (1.5-5.0); LYMPH % 26.9 % (24.0-44.0); MEAN CORPUSCULAR HEMOGLOBIN 30.9 pg (27.0-33.0); MEAN CORPUSCULAR HGB CONC 31.8 g/dl (32.0-36.5); MEAN CORPUSCULAR VOLUME 97.1 fl (80.0-96.0); MONO # 0.7 10^3/uL (0.0-0.8); MONO % 10.3 % (2.0-8.0); NEUTROPHILS % 59.7 % (36.0-66.0); PLATELET COUNT, AUTOMATED 240 10^3/uL (150-450); RED BLOOD COUNT 5.15 10^6/uL (4.30-6.10); WHITE BLOOD COUNT 6.6 10^3/uL (4.0-10.0)
[2020-12-31 15:42] LABS: HEMOGLOBIN A1c 5.6 %
[2020-12-31 15:55] LABS: ALBUMIN 4.1 GM/DL (3.2-5.2); ALT/SGPT 27 U/L (12-78); BILIRUBIN,TOTAL 0.9 MG/DL (0.2-1.0); BLOOD UREA NITROGEN 24 MG/DL (7-18); CALCIUM LEVEL 9.4 MG/DL (8.8-10.2); CARBON DIOXIDE LEVEL 32 MEQ/L (21-32); CHLORIDE LEVEL 102 MEQ/L (98-107); CREATININE FOR GFR 1.25 MG/DL (0.70-1.30); FERRITIN 179 NG/ML (26-388); GLOMERULAR FILTRATION RATE > 60.0 (>49); GLUCOSE, FASTING 111 MG/DL (70-100); NT-PRO BNP 28 PG/ML (<125); POTASSIUM SERUM 4.7 MEQ/L (3.5-5.1); SODIUM LEVEL 139 MEQ/L (136-145); TOTAL PROTEIN 7.2 GM/DL (6.4-8.2)
[2020-12-31 15:56] LABS: VITAMIN B12 LEVEL 398 PG/ML (247-911)
== END ==
LOC: M PLALAB 13:27
PROVIDERS: ATTEND Family Medicine
DX: R73.01 Impaired fasting glucose (principal); I10 Essential (primary) hypertension; E53.8 Deficiency of other specified B group vitamins; Z12.5 Encounter for screening for malignant neoplasm of prostate; Z23 Encounter for immunization
CPT/HCPCS: 36415; 80053; 82607; 82728; 83036; 83880; 85025; 90682; G0008; G0103

== ENCOUNTER → 2021-09-02 | Outpatient (CLI) | payer MEDICARE, OTHER ==
[2021-09-02 14:21] LABS: BASO # 0.1 10^3/uL (0.0-0.2); BASO % 0.8 % (0.0-1.0); EOS # 0.1 10^3/uL (0.0-0.5); EOS % 1.7 % (0.0-3.0); HEMATOCRIT 52.2 % (42.0-52.0); HEMOGLOBIN 16.8 g/dl (13.5-17.5); LYMPH # 1.6 10^3/uL (1.5-5.0); LYMPH % 26.5 % (24.0-44.0); MEAN CORPUSCULAR HEMOGLOBIN 31.4 pg (27.0-33.0); MEAN CORPUSCULAR HGB CONC 32.2 g/dl (32.0-36.5); MEAN CORPUSCULAR VOLUME 97.6 fl (80.0-96.0); MONO # 0.6 10^3/uL (0.0-0.8); MONO % 10.6 % (2.0-8.0); NEUTROPHILS # 3.5 10^3/uL (1.5-8.5); NEUTROPHILS % 59.6 % (36.0-66.0); PLATELET COUNT, AUTOMATED 192 10^3/uL (150-450); RED BLOOD COUNT 5.35 10^6/uL (4.30-6.10); WHITE BLOOD COUNT 5.9 10^3/uL (4.0-10.0)
[2021-09-02 15:05] LABS: APPEARANCE, URINE CLEAR (CLEAR); BACTERIA, URINE AUTO NEGATIVE (NEGATIVE); BILIRUBIN, URINE AUTO NEGATIVE (NEGATIVE); BLOOD, URINE BLOOD NEGATIVE (NEGATIVE); COLOR, URINE YELLOW (YELLOW); GLUCOSE, URINE (UA) AUTO NEGATIVE (NEGATIVE); KETONE, URINE AUTO NEGATIVE (NEGATIVE); LEUKOCYTE ESTERASE, URINE AUTO NEGATIVE (NEGATIVE); NITRITE, URINE AUTO NEGATIVE (NEGATIVE); PROTEIN, URINE AUTO NEGATIVE (NEGATIVE); RBC, URINE AUTO 0 /HPF (0-3); SPECIFIC GRAVITY URINE AUTO 1.023 (1.002-1.035); SQUAMOUS EPITHELIAL CELL UR AU 0 /HPF (0-6); UROBILINOGEN, URINE AUTO 0.2 mg/dL (0.0-2.0); WBC, URINE AUTO 0 /HPF (0-3)
[2021-09-02 17:23] LABS: MALB URINE SIEMENS 10.3 MG/L; MAU/CREAT RATIO 8.5 MCG/MG (0.0-30.0)
[2021-09-02 17:28] LABS: ALBUMIN 4.3 GM/DL (3.2-5.2); ALT/SGPT 24 U/L (12-78); BILIRUBIN,TOTAL 0.8 MG/DL (0.2-1.0); BLOOD UREA NITROGEN 24 MG/DL (7-18); C REACTIVE PROTEIN QUANTITATIV 0.34 MG/DL (0.00-0.30); CALCIUM LEVEL 9.7 MG/DL (8.8-10.2); CARBON DIOXIDE LEVEL 29 MEQ/L (21-32); CHLORIDE LEVEL 107 MEQ/L (98-107); CHOLESTEROL LEVEL 144 MG/DL (<200); CHOLESTEROL RISK RATIO 2.716 (<5); CREATININE FOR GFR 0.96 MG/DL (0.70-1.30); GLOMERULAR FILTRATION RATE > 60.0 (>49); GLUCOSE, FASTING 94 MG/DL (70-100); HDL CHOLESTEROL 53 MG/DL (>40); LDL CHOLESTEROL 70 MG/DL (<100); NON-HDL-C 91 MG/DL; POTASSIUM SERUM 5.9 MEQ/L (3.5-5.1); SODIUM LEVEL 142 MEQ/L (136-145); TRIGLYCERIDES LEVEL 105 MG/DL (<150)
[2021-09-02 18:40] LABS: TOTAL 25(OH) VITAMIN D 62.5 NG/ML (30.0-100.0)
== END ==
LOC: M PLALAB 11:03
PROVIDERS: ATTEND Family Medicine
DX: E78.5 Hyperlipidemia, unspecified (principal); I10 Essential (primary) hypertension; Z79.899 Other long term (current) drug therapy

== ENCOUNTER → 2022-06-20 | Outpatient (CLI) | payer MEDICARE, OTHER ==
[~2022-06-20] MED LIST changes: +SIMV-253 PO; -ZOCO20TA PO
[2022-06-20 15:40] LABS: BASO # 0.1 10^3/uL (0.0-0.2); BASO % 0.9 % (0.0-1.0); EOS # 0.2 10^3/uL (0.0-0.5); EOS % 3.2 % (0.0-3.0); HEMATOCRIT 48.3 % (42.0-52.0); HEMOGLOBIN 15.3 g/dl (13.5-17.5); LYMPH # 1.6 10^3/uL (1.5-5.0); LYMPH % 30.2 % (24.0-44.0); MEAN CORPUSCULAR HEMOGLOBIN 32.1 pg (27.0-33.0); MEAN CORPUSCULAR HGB CONC 31.7 g/dl (32.0-36.5); MEAN CORPUSCULAR VOLUME 101.3 fl (80.0-96.0); MONO # 0.6 10^3/uL (0.0-0.8); MONO % 11.2 % (2.0-8.0); NEUTROPHILS # 2.9 10^3/uL (1.5-8.5); NEUTROPHILS % 54.1 % (36.0-66.0); PLATELET COUNT, AUTOMATED 252 10^3/uL (150-450); RED BLOOD COUNT 4.77 10^6/uL (4.30-6.10); WHITE BLOOD COUNT 5.4 10^3/uL (4.0-10.0)
[2022-06-20 16:07] LABS: ALBUMIN 4.5 G/DL (3.2-5.2); ALKALINE PHOSPHATASE 107 U/L (46-116); ALT/SGPT 20 U/L (7.0-40); AST/SGOT 20 U/L (<34); BILIRUBIN,TOTAL 0.8 MG/DL (0.3-1.2); BLOOD UREA NITROGEN 20 MG/DL (9-23); CALCIUM LEVEL 9.8 MG/DL (8.3-10.6); CARBON DIOXIDE LEVEL 30 MMOL/L (20-31); CHLORIDE LEVEL 106 MMOL/L (98-107); CREATININE FOR GFR 0.92 MG/DL (0.70-1.30); GLOMERULAR FILTRATION RATE > 60.0 (>49); GLUCOSE, FASTING 85 MG/DL (74-106); MAGNESIUM LEVEL 2.4 MG/DL (1.8-2.4); POTASSIUM SERUM 5.2 MMOL/L (3.5-5.1); SODIUM LEVEL 136 MMOL/L (136-145); TOTAL PROTEIN 7.2 G/DL (5.7-8.2)
[2022-06-20 16:09] LABS: VITAMIN B12 LEVEL 361 PG/ML (211-911)
[2022-06-23 20:09] LABS: IMMUNOTYPING SERUM IGA SO 119 mg/dL (61-437); IMMUNOTYPING SERUM IGM SO 84 mg/dL (20-172)
== END ==
LOC: M PLALAB 13:13
PROVIDERS: ATTEND Family Medicine
DX: D75.89 Other specified diseases of blood and blood-forming organs (principal); E53.8 Deficiency of other specified B group vitamins; I10 Essential (primary) hypertension; Z12.5 Encounter for screening for malignant neoplasm of prostate

== ENCOUNTER → 2022-12-07 | Outpatient (CLI) | payer MEDICARE, MEDICAID ==
[2022-12-07 19:04] LABS: BASO # 0.1 10^3/uL (0.0-0.2); BASO % 0.9 % (0.0-1.0); EOS # 0.2 10^3/uL (0.0-0.5); EOS % 4.2 % (0.0-3.0); HEMOGLOBIN 15.3 g/dl (13.5-17.5); LYMPH # 1.6 10^3/uL (1.5-5.0); MEAN CORPUSCULAR HEMOGLOBIN 31.9 pg (27.0-33.0); MEAN CORPUSCULAR HGB CONC 31.9 g/dl (32.0-36.5); MONO # 0.5 10^3/uL (0.0-0.8); MONO % 9.2 % (2.0-8.0); NEUTROPHILS # 3.1 10^3/uL (1.5-8.5); NEUTROPHILS % 56.1 % (36.0-66.0); PLATELET COUNT, AUTOMATED 213 10^3/uL (150-450); WHITE BLOOD COUNT 5.4 10^3/uL (4.0-10.0)
[2022-12-07 19:13] LABS: ALBUMIN 4.2 G/DL (3.2-5.2); ALKALINE PHOSPHATASE 131 U/L (46-116); ALT/SGPT 20 U/L (7.0-40); AST/SGOT 19 U/L (<34); BILIRUBIN,TOTAL 0.6 MG/DL (0.3-1.2); BLOOD UREA NITROGEN 17 MG/DL (9-23); CALCIUM LEVEL 9.2 MG/DL (8.3-10.6); CARBON DIOXIDE LEVEL 30 MMOL/L (20-31); CHLORIDE LEVEL 104 MMOL/L (98-107); CHOLESTEROL LEVEL 163 MG/DL (<200); CHOLESTEROL RISK RATIO 2.38 (<5); CREATININE FOR GFR 0.88 MG/DL (0.70-1.30); GLOMERULAR FILTRATION RATE > 60.0 (>49); GLUCOSE, FASTING 84 MG/DL (74-106); HDL CHOLESTEROL 68.3 MG/DL (>40); LDL CHOLESTEROL 72.1 MG/DL (<100); NON-HDL-C 94.7 MG/DL; POTASSIUM SERUM 4.9 MMOL/L (3.5-5.1); SODIUM LEVEL 142 MMOL/L (136-145); TOTAL PROTEIN 6.9 G/DL (5.7-8.2); TRIGLYCERIDES LEVEL 113 MG/DL (<150)
== END ==
LOC: M PLALAB 13:06
PROVIDERS: ATTEND Family Medicine
DX: I10 Essential (primary) hypertension (principal); R73.01 Impaired fasting glucose

== ENCOUNTER → 2023-01-19 | Outpatient (CLI) | payer MEDICARE, MEDICAID | LOC: M PLAIMG 16:09 | PROVIDERS: ATTEND Physician Assistant | DX: M79.601 Pain in right arm (principal); R07.81 Pleurodynia; W19.XXXA Unspecified fall, initial encounter ==

== ENCOUNTER → 2023-04-09 | Outpatient (CLI) | payer MEDICARE, MEDICAID ==
[2023-04-09 15:57] LABS: BASO # 0.1 10^3/uL (0.0-0.2); BASO % 0.7 % (0.0-1.0); EOS # 0.1 10^3/uL (0.0-0.5); HEMATOCRIT 50.7 % (42.0-52.0); HEMOGLOBIN 16.6 g/dl (13.5-17.5); LYMPH # 1.9 10^3/uL (1.5-5.0); LYMPH % 26.6 % (24.0-44.0); MEAN CORPUSCULAR HGB CONC 32.7 g/dl (32.0-36.5); MEAN CORPUSCULAR VOLUME 97.7 fl (80.0-96.0); MONO # 0.6 10^3/uL (0.0-0.8); MONO % 7.7 % (2.0-8.0); NEUTROPHILS # 4.5 10^3/uL (1.5-8.5); NEUTROPHILS % 62.6 % (36.0-66.0); PLATELET COUNT, AUTOMATED 253 10^3/uL (150-450); RED BLOOD COUNT 5.19 10^6/uL (4.30-6.10); WHITE BLOOD COUNT 7.1 10^3/uL (4.0-10.0)
[2023-04-09 16:21] LABS: ALBUMIN 4.3 G/DL (3.2-5.2); ALKALINE PHOSPHATASE 128 U/L (46-116); ALT/SGPT 18 U/L (7.0-40); AST/SGOT 19 U/L (<34); BILIRUBIN,TOTAL 0.9 MG/DL (0.3-1.2); BLOOD UREA NITROGEN 23 MG/DL (9-23); CALCIUM LEVEL 9.8 MG/DL (8.3-10.6); CARBON DIOXIDE LEVEL 30 MMOL/L (20-31); CHLORIDE LEVEL 103 MMOL/L (98-107); CREATININE FOR GFR 1.05 MG/DL (0.70-1.30); GLOMERULAR FILTRATION RATE > 60.0 (>49); GLUCOSE, FASTING 88 MG/DL (74-106); POTASSIUM SERUM 5.3 MMOL/L (3.5-5.1); SODIUM LEVEL 138 MMOL/L (136-145); TOTAL PROTEIN 7.1 G/DL (5.7-8.2)
[2023-04-09 16:27] LABS: TOTAL 25(OH) VITAMIN D 44.3 NG/ML (20.0-100.0)
[2023-04-09 16:59] LABS: PTH INTACT 30.9 PG/ML (18.5-88.0)
== END ==
LOC: M PLALAB 13:12
PROVIDERS: ATTEND Family Medicine
DX: E55.9 Vitamin D deficiency, unspecified (principal); I10 Essential (primary) hypertension; E53.8 Deficiency of other specified B group vitamins

== ENCOUNTER → 2023-04-09 | Outpatient (REF) | payer MEDICARE, MEDICAID | LOC: M SFHCPLAZ 12:48 | PROVIDERS: ATTEND Family Medicine | DX: I10 Essential (primary) hypertension (principal); E53.8 Deficiency of other specified B group vitamins; E55.9 Vitamin D deficiency, unspecified ==

== ENCOUNTER → 2024-01-03 | Outpatient (CLI) | payer MEDICARE, MEDICAID ==
[2024-01-03 12:00] LABS: BASO % 0.9 % (0.0-1.0); EOS # 0.1 10^3/uL (0.0-0.5); EOS % 2.3 % (0.0-3.0); HEMATOCRIT 48.1 % (42.0-52.0); HEMOGLOBIN 15.7 g/dl (13.5-17.5); LYMPH # 1.3 10^3/uL (1.5-5.0); LYMPH % 27.4 % (24.0-44.0); MEAN CORPUSCULAR HEMOGLOBIN 31.2 pg (27.0-33.0); MEAN CORPUSCULAR HGB CONC 32.6 g/dl (32.0-36.5); MEAN CORPUSCULAR VOLUME 95.4 fl (80.0-96.0); MONO # 0.5 10^3/uL (0.0-0.8); MONO % 9.6 % (2.0-8.0); NEUTROPHILS # 2.8 10^3/uL (1.5-8.5); NEUTROPHILS % 59.2 % (36.0-66.0); PLATELET COUNT, AUTOMATED 212 10^3/uL (150-450); RED BLOOD COUNT 5.04 10^6/uL (4.30-6.10); WHITE BLOOD COUNT 4.7 10^3/uL (4.0-10.0)
[2024-01-03 12:25] LABS: PSA SCREENING 0.25 NG/ML (< 4.00)
[2024-01-03 12:28] LABS: ALBUMIN 4.1 G/DL (3.2-5.2); ALKALINE PHOSPHATASE 125 U/L (40-129); ALT/SGPT 19 U/L (7.0-40); AST/SGOT 16 U/L (<34); BILIRUBIN,TOTAL 0.6 MG/DL (0.3-1.2); BLOOD UREA NITROGEN 16 MG/DL (9-23); CALCIUM LEVEL 9.8 MG/DL (8.3-10.6); CARBON DIOXIDE LEVEL 30 MMOL/L (20-31); CHLORIDE LEVEL 103 MMOL/L (98-107); CHOLESTEROL LEVEL 182 MG/DL (<200); CHOLESTEROL RISK RATIO 2.37 (<5); CREATININE FOR GFR 0.99 MG/DL (0.70-1.30); GLOMERULAR FILTRATION RATE > 60.0 (>49); GLUCOSE, FASTING 92 MG/DL (74-106); HDL CHOLESTEROL 76.6 MG/DL (>40); NON-HDL-C 105.4 MG/DL; SODIUM LEVEL 140 MMOL/L (136-145); TOTAL PROTEIN 7.1 G/DL (5.7-8.2); TRIGLYCERIDES LEVEL 82 MG/DL (<150)
[2024-01-03 12:29] LABS: FERRITIN 211.4 NG/ML (10.5-307.3); VITAMIN B12 LEVEL 477 PG/ML (211-911)
== END ==
LOC: M LAB 10:48
PROVIDERS: ATTEND Family Medicine
DX: E53.8 Deficiency of other specified B group vitamins (principal); I10 Essential (primary) hypertension; R73.01 Impaired fasting glucose; Z12.5 Encounter for screening for malignant neoplasm of prostate
CPT/HCPCS: 36415; 80053; 80061; 82607; 82728; 84155; 84165; 85025; G0103

== ENCOUNTER → 2024-10-23 | Outpatient (CLI) | payer MEDICARE, MEDICAID ==
[2024-10-23 17:18] LABS: BASO # 0.0 10^3/uL (0.0-0.2); BASO % 0.5 % (0.0-1.0); EOS # 0.1 10^3/uL (0.0-0.5); EOS % 2.0 % (0.0-3.0); LYMPH # 2.1 10^3/uL (1.5-5.0); LYMPH % 33.7 % (24.0-44.0); MONO # 0.6 10^3/uL (0.0-0.8); MONO % 9.1 % (2.0-8.0); NEUTROPHILS # 3.3 10^3/uL (1.5-8.5); NEUTROPHILS % 54.2 % (36.0-66.0); PLATELET COUNT, AUTOMATED 217 10^3/uL (150-450)
[2024-10-23 17:32] LABS: CHOLESTEROL LEVEL 168.0 MG/DL (<200); CHOLESTEROL RISK RATIO 2.21 (<5); LDL CHOLESTEROL 76.9 MG/DL (<100); NON-HDL-C 92.3 MG/DL; PSA SCREENING 0.23 NG/ML (< 4.00); TRIGLYCERIDES LEVEL 77.0 MG/DL (<150)
[2024-10-23 17:35] LABS: VITAMIN B12 LEVEL 666.0 PG/ML (211-911)
[2024-10-23 18:12] LABS: ESTIMATED AVERAGE GLUCOSE 114.0 MG/DL (60-110)
== END ==
LOC: M PLALAB 16:10
PROVIDERS: ATTEND Family Medicine
DX: E53.8 Deficiency of other specified B group vitamins (principal); R73.01 Impaired fasting glucose; Z12.5 Encounter for screening for malignant neoplasm of prostate; I10 Essential (primary) hypertension; K76.0 Fatty (change of) liver, not elsewhere classified

== ENCOUNTER 2025-02-05 08:09 | Emergency (ER) | payer MEDICARE, MEDICAID ==
[~2025-02-05] VITALS: Ht 180.3 cm; Wt 86.6 kg
[2025-02-05 09:06] LABS: BASO # 0.0 10^3/uL (0.0-0.2); BASO % 0.4 % (0.0-1.0); EOS # 0.1 10^3/uL (0.0-0.5); EOS % 0.5 % (0.0-3.0); LYMPH # 1.0 10^3/uL (1.5-5.0); LYMPH % 8.8 % (24.0-44.0); MONO # 0.6 10^3/uL (0.0-0.8); MONO % 5.4 % (2.0-8.0); NEUTROPHILS # 9.1 10^3/uL (1.5-8.5); NEUTROPHILS % 84.3 % (36.0-66.0); PLATELET COUNT, AUTOMATED 209 10^3/uL (150-450)
[2025-02-05] MEDS: MORPHINE 2 MG/ML 1 ML VIAL IV PRN (09:12)
[2025-02-05] MEDS: ONDANSETRON 4MG/2ML VIAL IV ONE (09:12)
[2025-02-05] MEDS: NS (Normal Saline) 0.9% 1,000 ML IV SCH (09:12)
[2025-02-05 09:20] LABS: CK-MB VALUE MASS 6.6 NG/ML (<3.6)
[2025-02-05 09:21] LABS: CPK CREATINE PHOSPHOKINASE 192.0 U/L (46-171); MB/CK RELATIVE INDEX 3.43 (< OR =4)
[2025-02-05 09:22] LABS: ALT/SGPT 24.0 U/L (7.0-40); AST/SGOT 29.0 U/L (<34); CALCIUM LEVEL 9.1 MG/DL (8.3-10.6); CARBON DIOXIDE LEVEL 30.0 MMOL/L (20-31); CHLORIDE LEVEL 104.0 MMOL/L (98-107); CREATININE FOR GFR 0.94 MG/DL (0.70-1.30); GLOMERULAR FILTRATION RATE 86.7 (>42); POTASSIUM SERUM 4.1 MMOL/L (3.5-5.1); SODIUM LEVEL 142.0 MMOL/L (136-145)
[2025-02-05 09:29] LABS: INR 0.99
[2025-02-05] MEDS ORDERED: ASPI-226 PO (10:53)
[2025-02-05] MEDS ORDERED: LISI5TAB11 PO (10:53)
[2025-02-05] MEDS ORDERED: HOME MED LIST COMPLETE! XX SCH (11:00)
[2025-02-05] MEDS ORDERED: MIRALAX *UNIT DOSE* 17 GM PACKET PO PRN (12:15)
[2025-02-05] MEDS ORDERED: MORPHINE 2 MG/ML 1 ML VIAL IV PRN ×2 (12:15)
[2025-02-05] MEDS ORDERED: GLUCAGON INJ 1 MG VIAL SC PRN (12:25)
[2025-02-05] MEDS ORDERED: GLUCOSE 4 GM CHEW PO PRN (12:25)
[2025-02-05] MEDS ORDERED: DEXTROSE 50% 50 ML SYRINGE IV PRN (12:25)
[2025-02-05] MEDS: ACETAMINOPHEN 500 MG TAB PO SCH (13:50)
[2025-02-05] MEDS: ASPIRIN 81 MG ENTERIC TABLET PO SCH (13:50)
[2025-02-05] MEDS: SIMVASTATIN 20 MG TAB PO SCH (13:51)
[2025-02-05] MEDS: LIDOCAINE 5% PATCH TD SCH (13:51)
[2025-02-05 14:12] VITALS: BP 131/61
[2025-02-05] MEDS: ATENOLOL 12.5 MG PER 1/2 TABLET PO SCH (14:12)
[2025-02-05] MEDS: INSULIN LISPRO (NovoLOG) PER UNIT SC SCH ×2 (18:16→21:00)
[2025-02-06 06:51] LABS: PLATELET COUNT, AUTOMATED 140 10^3/uL (150-450)
[2025-02-06 07:13] LABS: CALCIUM LEVEL 8.6 MG/DL (8.3-10.6); CARBON DIOXIDE LEVEL 29 MMOL/L (20-31); CHLORIDE LEVEL 104 MMOL/L (98-107); CREATININE FOR GFR 0.87 MG/DL (0.70-1.30); GLOMERULAR FILTRATION RATE > 90.0 (>42); POTASSIUM SERUM 4.8 MMOL/L (3.5-5.1); SODIUM LEVEL 139 MMOL/L (136-145)
[2025-02-06] MEDS: ENOXAPARIN 40 MG/0.4 ML SYRINGE (J1650 PER 10MG) SC SCH (10:20)
[2025-02-06] MEDS: ASPIRIN 81 MG ENTERIC TABLET PO ONE (10:21)
[2025-02-06 10:29] VITALS: TEMP 99.2
[2025-02-06 12:00] VITALS: BP 121/65
[2025-02-06 12:10] VITALS: O2SAT 97
[2025-02-06] MEDS: FLUZONE HIGH DOSE (65+) 0.5 ML SYRINGE (25-26) IM.IMMUN ONE (12:17)
[2025-02-06] MEDS ORDERED: ASPIRIN 81 MG ENTERIC TABLET PO SCH (21:00)
== END 2025-02-06 13:03 | disposition home or self-care (01) ==
LOC: EDBD 08:09 → M ED 08:09
DX: S72.114A Nondisplaced fracture of greater trochanter of right femur, initial encounter for closed fracture (principal); S40.012A Contusion of left shoulder, initial encounter; W00.0XXA Fall on same level due to ice and snow, initial encounter; Y92.008 Other place in unspecified non-institutional (private) residence as the place of occurrence of the external cause; Y93.K1 Activity, walking an animal; Y99.9 Unspecified external cause status; Z23 Encounter for immunization; I10 Essential (primary) hypertension; E11.9 Type 2 diabetes mellitus without complications; M19.90 Unspecified osteoarthritis, unspecified site; Z79.01 Long term (current) use of anticoagulants; E78.5 Hyperlipidemia, unspecified; Z96.641 Presence of right artificial hip joint; Z96.652 Presence of left artificial knee joint; Z79.84 Long term (current) use of oral hypoglycemic drugs; Z79.899 Other long term (current) drug therapy
CPT/HCPCS: 70450; 71045; 72125; 73030; 73060; 73502; 73552; 73700; 80048; 80076; 82550; 82553; 84484; 85025; 85027; 85610; 85730; 86850; 86900; 86901; 90662; 93005; 93041; 94760; 96361; 96372; 96374; 96375; 97161; 97530; 99285; G0008; J1815; J2405